=== PATIENT | female | born 1940 ===

== ENCOUNTER 2018-09-26 21:13 | Emergency (ER) | payer OTHER ==
[~2018-09-26] VITALS: Ht 160 cm; Wt 60.3 kg
[2018-09-26] MEDS ORDERED: VASOTEC2.5 MG (21:26)
[2018-09-26] MEDS ORDERED: ULTRACET PO (23:51)
[2018-09-26] MEDS ORDERED: BACTRIM DS TAB1 EACH PO (23:51)
== END 2018-09-27 00:01 | disposition home or self-care (01) ==
LOC: ER 21:13
DX: R10.31 Right lower quadrant pain (principal)